=== PATIENT | female | born 1995 | race Caucasian/White ===

== ENCOUNTER 2016-09-17 09:40 | Inpatient (IN) | payer OTHER ==
[2016-09-17 14:38] VITALS: BMI 20.3
--- NOTE | 2016-09-17 15:16 | HP ---
COWS - Scale Resting Pulse: 4= [place] > 121 Sweatin= No chills or Flushing Restless Observation: 3= Extraneous Movement Pupil Size: 2= Moderately Dilated Bone or Joint Aches: 2= Severe Diffuse Aches Runny Nose/ Eye Tearin= Nasal Congestion GI Upset > 30mins: 1= Stomach Cramp Tremor Observation: 1= Tremor [place], Not Seen Yawning Observation: 1= 1-2x During Session Anxiety or Irritability: 1=Feels Anxious/Irritable Goose Flesh Skin: 0=Smooth Skin COWS Score: 16 CIWA Score - CIWA Score Nausea/Vomitin-No Nausea/No Vomiting Muscle Tremors: 3 Anxiety: 5 Agitation: 4-Moderately Restless Paroxysmal Sweats: 1-Minimal Palms Moist Orientation: 0-Oriented Tacttile Disturbances: 2-Mild Itch/Numbness/Burn Auditory Disturbances: 0-None Visual Disturbances: 0-None Headache: 0-None Present CIWA-Ar Total Score: 15 Admission ROS S - HPI Chief Complaint: DETOX TX FOR HEROIN AND XANAX DEPENDENCE. Allergies/Adverse Reactions: Allergies Allergy/AdvReac Type Severity Reaction Status Date / Time No Known Allergies Allergy Verified 09/17/16 14:40 History of Present Illness: 20 Y/O FEMALE WITH A HX OF HEROIN,COCAINE AND XANAX DEPENDENCE SEEKING DETOX TX. Exam Limitations: No Limitations - Ebola screening Have you traveled outside of the country in the last 21 days: No Have you had contact with anyone from an Ebola affected area: No Have you been sick,other than usual withdrawal symptoms: No Do you have a fever: No - Review of Systems Constitutional: Chills, Loss of Appetite, Night Sweats, Changes in sleep, Unintentional Wgt. Loss EENT: reports: Blurred Vision, Tearing, Nose Congestion, Dental Problems Respiratory: reports: No Symptoms reported Cardiac: reports: Lightheadedness GI: reports: Constipated, Diarrhea, Nausea, Poor Appetite, Poor Fluid Intake, Vomiting, Abdominal cramping : reports: Burning, Dysuria (DUE TO ACTIVE DRUG USE) Musculoskeletal: reports: Back Pain, Joint Pain, Muscle Pain Integumentary: reports: Bruising (IVD INJ SITES ON BOTH FOREARMS AND BOTH SIDES OF NECK--SITES SLIGHTLY RED. ON CEPHALEXINE 500 MG CAP 4 X DAILY.) Neuro: reports: Headache, Unsteady Gait, Dizziness Endocrine: reports: No Symptoms Reported Hematology: reports: Easy Bruising Psychiatric: reports: Orientated x3, Anxious, Depressed Other Systems: Reviewed and Negative Patient History - Patient Medical History Hx Anemia: No Hx Asthma: No Hx Chronic Obstructive Pulmonary Disease (COPD): No Hx Cardiac Disorders: No Hx Hypertension: No Hx Hypercholesterolemia: No HX Cerebrovascular Accident: No Hx Seizures: No Hx Diabetes: No Hx Gastrointestinal Disorders: No Hx Genitourinary Disorders: No Hx Sexually Transmitted Disorders: No Hx Renal Disease (ESRD): No Hx Thyroid Disease: No Hx Human Immunodeficiency Virus (HIV): No (NEGATIVE HX) Hx Hepatitis C: No Hx Depression: Yes (ON MED-TAKES EFFEXOR) Hx Suicide Attempt: No (DENIES(HX OF ACCIDENTAL OVERDOSE OF HEROIN/FENTANYL). ) Hx Schizophrenia: No - Patient Surgical History Past Surgical History: No Hx Neurologic Surgery: No Hx Cataract Extraction: No Hx Cardiac Surgery: No Hx Lung Surgery: No Hx Breast Surgery: No Hx Breast Biopsy: No Hx Abdominal Surgery: No Hx Appendectomy: No Hx Cholecystectomy: No Hx Genitourinary Surgery: No Hx Section: No Hx Orthopedic Surgery: No Hx Hysterectomy: No Anesthesia Reaction: No - PPD History Previous Implant?: Yes Documented Results: Negative w/o proof Implanted On Prior R Admission?: No PPD to be Administered?: Yes - Reproductive History Patient is a Female of Child Bearing Age (11 -55 yrs old): Yes Last Menstrual Period: 08/28/16 Patient : No - Smoking Cessation Smoking history: Current every day smoker Have you smoked in the past 12 months: Yes Aproximately how many cigarettes per day: 20 Hx Chewing Tobacco Use: No Initiated information on smoking cessation: Yes 'Breaking Loose' booklet given: 09/17/16 - Substance & Tx. History Hx Alcohol Use: Yes (BEER) Hx Substance Use: Yes (HEROIN/XANAX/COCAINE/CRYSTAL METH) Substance Use Type: Alcohol, Cocaine, Heroin Hx Substance Use Treatment: No - Substances Abused Heroin Route: Injection Frequency: Daily Amount used: 10 bags Age of first use: 20 Date of Last Use: 09/16/16 Alprazolam (Xanax) Route: Oral Frequency: 3-6 times per week Amount used: 2mg Age of first use: 19 Date of Last Use: 09/14/16 Cocaine Route: Injection Frequency: Daily Amount used: 8 ball Age of first use: 17 Date of Last Use: 09/16/16 Alcohol Route: Oral Frequency: 3-6 times per week Amount used: 7 beers Age of first use: 17 Date of Last Use: 09/16/16 Crystal Meth Route: Smoking Amount used: 3 bags Age of first use: 20 Date of Last Use: 09/16/16 Family Disease History - Family Disease History Family History: Unable to Obtain (ADOPTED--"DON'T KNOW") Admission Physical Exam [facility] - Vital Signs Vital Signs: Vital Signs - 24 hr 09/17/16 14:36 Temperature 97.0 F L Pulse Rate 124 H Respiratory 20 Rate Blood Pressure 121/84 - Physical General Appearance: Yes: Moderate Distress, Irritable, Anxious HEENTM: Yes: EOMI, Normocephalic, ENID, Pharynx Normal, Other (NOSE RING IN PLACE.) Respiratory: Yes: Chest Non-Tender, Lungs Clear, Normal Breath Sounds, No Respiratory Distress Neck: Yes: Supple, Trachea in good position Breast: Yes: Breast Exam Deferred Cardiology: Yes: Regular Rhythm, S1, S2, Tachycardia Abdominal: Yes: Normal Bowel Sounds, Non Tender, Flat, Soft Genitourinary: Yes: Other (N/C) Musculoskeletal: Yes: full range of Motion, Gait Steady Extremities: Yes: Normal Range of Motion, Non-Tender 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 SOME REDNESS--PT ON CEPHALEXINE TX. WILL CONTINUE ANTIBIOTICS TREATMENT TILL FINISH.) Lymphatic: Yes: Within Normal Limits - Diagnostic (1) Alcohol dependence with uncomplicated withdrawal Current Visit: Yes Status: Acute (2) Opioid dependence with withdrawal Current Visit: Yes Status: Acute (3) Sedative, hypnotic or anxiolytic dependence with withdrawal, uncomplicated Current Visit: Yes Status: Acute (4) Cocaine dependence, uncomplicated Current Visit: Yes Status: Acute (5) Cellulitis Current Visit: Yes Status: Acute Qualifiers: Site of cellulitis of extremity: upper extremity Comment: BOTH FOREARMS DUE TO IVD INJ. SITES (6) Methamphetamine dependence Current Visit: Yes Status: Acute Cleared for Admission [facility] - Detox or Rehab [facility] Level of Care: Medically Managed Detox Regimen/Protocol: Methadone/Valium [facility] Breath Alcohol Content Breath Alcohol Content: 0 Urine Pregancy Test - Result Urine Test Results: Negative- NO Line Present Urine Drug Screen - Results Drug Screen Negative: No Urine Drug Screen Results: MARK-Cocaine, OPI-Opiates, AMP-Amphetamines, MET- Methamphetamine, BZO-Benzodiazepines
[2016-09-17] MEDS ORDERED: diphenhydrAMINE HCL 50 MG CAPSULE PO PRN (15:34)
[2016-09-17] MEDS ORDERED: IBUPROFEN 400 MG TABLET (FP) PO PRN (15:34)
[2016-09-17] MEDS ORDERED: MENTHOL/PHENOL 1 EACH UD MM PRN (15:34)
[2016-09-17] MEDS ORDERED: LOPERAMIDE HCL 2 MG CAPSULE PO PRN (15:34)
[2016-09-17] MEDS ORDERED: ACETAMINOPHEN 325 MG TABLET (FP) PO PRN (15:34)
[2016-09-17] MEDS ORDERED: MAGNESIUM HYDROX 2400MG/30ML ORAL SUSPENSION 30 ML CUP PO PRN (15:34)
[2016-09-17] MEDS ORDERED: P-EPHED 60MG/TRIPROLIDI 2.5MG TABLET PO PRN (15:34)
[2016-09-17] MEDS ORDERED: MAG HYDROX/AL HYDROX/SIMETH 30 ML UNIT-DOSE CUP PO PRN (15:34)
[2016-09-17] MEDS ORDERED: NICOTINE POLACRILEX 4 MG GUM BC PRN (15:34)
[2016-09-17] MEDS ORDERED: guaiFENesin/D-METHORPHAN HB 10 ML UNIT-DOSE CUPS PO PRN (15:34)
[2016-09-17] MEDS ORDERED: MAGNESIUM CITRATE 300 ML BOTTLE PO PRN (15:34)
[2016-09-17] MEDS ORDERED: diazePAM 5 MG TABLET PO PRN ×2 (15:34→16:18)
[2016-09-17] MEDS ORDERED: diazePAM 5 MG TABLET PO ONE (18:00)
[2016-09-17] MEDS ORDERED: METHADONE HCL 10 MG TABLET (FOR DETOX USE ONLY) PO ONE ×2 (18:00→23:00)
[2016-09-17] MEDS: NICOTINE 21 MG/24 HOURS TOPICAL PATCH TD SCH (18:10)
[2016-09-17] MEDS: CEPHALEXIN MONOHYDRATE 500 MG CAPSULE (UD) PO SCH ×2 (18:15→23:01)
[2016-09-17] MEDS ORDERED: THIAMINE HCL 100 MG TABLET (FP) PO SCH (22:00)
[2016-09-17] MEDS: diazePAM 5 MG TABLET PO SCH (22:39)
[2016-09-17 23:13] LABS: URINE APPEARANCE CLEAR; URINE BILIRUBIN NEGATIVE (NEGATIVE); URINE BLOOD NEGATIVE (NEGATIVE); URINE COLOR YELLOW; URINE GLUCOSE (UA) NEGATIVE (NEGATIVE); URINE KETONE 1+ (NEGATIVE); URINE NITRITE NEGATIVE (NEGATIVE); URINE PROTEIN NEGATIVE (NEGATIVE); URINE UROBILINOGEN NEGATIVE E.U./dl (0.2-1.0)
[2016-09-17 23:14] LABS: URINE LEUK ESTERASE 1+ (NEGATIVE)
[2016-09-17 23:19] LABS: URINE BACTERIA RARE /hpf (NONE SEEN); URINE MUCUS RARE; URINE RBC <1 /hpf (0-3); URINE WBC 5 /hpf (3-5)
[2016-09-18] MEDS: CEPHALEXIN MONOHYDRATE 500 MG CAPSULE (UD) PO SCH ×2 (07:15→13:52)
[2016-09-18] MEDS: diazePAM 5 MG TABLET PO SCH (07:15)
--- NOTE | 2016-09-18 09:36 | PN ---
[facility]HS COWS - Scale Resting Pulse: 0= [place] 80 or Below Sweatin= Chills/Flushing Restless Observation: 1= Difficult to Sit Still Pupil Size: 1= Pupils >than Normal Bone or Joint Aches: 2= Severe Diffuse Aches Runny Nose/ Eye Tearin= Nasal Congestion GI Upset > 30mins: 1= Stomach Cramp Tremor Observation of Outstretched Hands: 1= Tremor [place], Not Seen Yawning Observation: 0= None Anxiety or Irritability: 2=Irritable/Anxious Goose Flesh Skin: 0=Smooth Skin COWS Score: 10 BHS Progress Note (SOAP) Subjective: interrupted sleep, sweats, anxiety ,left wrist pain Objective: 09/18/16 09:31 Vital Signs Temperature 97.3 F L 09/18/16 06:00 Pulse Rate 68 09/18/16 06:00 Respiratory Rate 16 09/18/16 06:00 Blood Pressure 115/59 09/18/16 06:00 O2 Sat by Pulse Oximetry (%) Laboratory Tests 09/17/16 22:08 Urine Color Yellow Urine Appearance Clear Urine pH 6.0 Urine Protein Negative Urine Glucose (UA) Negative Urine Ketones 1+ H Urine Blood Negative Urine Nitrite Negative Urine Bilirubin Negative Urine Urobilinogen Negative Ur Leukocyte Esterase 1+ H Urine RBC <1 Urine WBC 5 Ur Epithelial Cells Many Urine Bacteria Rare Urine Mucus Rare 09/18/16 09:48 pt aox3 , anxious rt hand cellulitis improving , left wrist excoriated Assessment: 09/18/16 09:31 withdrawal sx's cellulitis improving 09/18/16 09:50 Plan: cont. detox increase fluids cont . keflex bacitracin oint bid
[2016-09-18] MEDS ORDERED: VENLAFAXINE HCL PO SCH (10:00)
[2016-09-18] MEDS ORDERED: METHADONE HCL 10 MG TABLET (FOR DETOX USE ONLY) PO ONE (10:00)
[2016-09-18] MEDS ORDERED: VENLAFAXINE HCL 100 MG TABLET PO SCH (10:00)
[2016-09-18] MEDS ORDERED: BACITRACIN 0.9 GM PACKET TP SCH (10:00)
[2016-09-18] MEDS ORDERED: PRENATAL VITAMINS W/ FOLIC ACID TABLET (FP) PO SCH (10:00)
[2016-09-18 10:14] LABS: MCH 30.5 pg (25.7-33.7); MEAN CELL VOLUME 87.2 fl (80-96); MEAN PLT VOLUME 8.4 fl (7.5-11.1); PLATELET COUNT 204 K/MM3 (134-434); RDW 13.4 % (11.6-15.6); WHITE BLOOD COUNT 6.7 K/mm3 (4.0-10.0)
--- NOTE | 2016-09-18 10:20 | CONSULT ---
[facility] Psychiatric Consult - Data Date of interview: 09/18/16 Admission source: [facility] Identifying data: This is 20 years old female with psychiatric hospitalization history intoxicated with: Alcohol, Cocaine, Opioids, Xanax Substance Abuse History: - Smoking Cessation. Smoking history: Current every day smoker. Have you smoked in the past 12 months: Yes. Aproximately how many cigarettes per day: 20. Hx Chewing Tobacco Use: No. Initiated information on smoking cessation: Yes. 'Breaking Loose' booklet given: 09/17/16. - Substance & Tx. History. Hx Alcohol Use: Yes (BEER). Hx Substance Use: Yes (HEROIN/XANAX /COCAINE/CRYSTAL METH). Substance Use Type: Alcohol, Cocaine, Heroin. Hx Substance Use Treatment: No. - Substances Abused. Heroin. Route: Injection. Frequency: Daily. Amount used: 10 bags. Age of first use: 20. Date of Last Use: 09/16/16. Alprazolam (Xanax). Route: Oral. Frequency: 3- 6 times per week. Amount used: 2mg. Age of first use: 19. Date of Last Use: 09/14/16. Cocaine. Route: Injection. Frequency: Daily. Amount used: 8 ball. Age of first use: 17. Date of Last Use: 09/16/16. Alcohol. Route: Oral. Frequency: 3-6 times per week. Amount used: 7 beers. Age of first use: 17. Date of Last Use: 09/16/16. Crystal Meth. Route: Smoking. Amount used : 3 bags. Age of first use: 20. Date of Last Use: 09/16/16 Medical History: Cellulitis history Psychiatric History: Patient reports unclear psychiatric admission on 3 years ago at [facility] for safety, reports taking prior to admission: Effexor 175mg poqd. Seroquel 50mg po qhs. Vistaril 25mg po prn q4 for anxiety Physical/Sexual Abuse/Trauma History: Denies Additional Comment: Effexor 175mg poqd. Seroquel 50mg po qhs. Vistaril 25mg po prn q4 for anxiety Mental Status Exam - Mental Status Exam Alert and Oriented to: Person Cognitive Function: Fair Patient Appearance: Unkempt Mood: Anxious Affect: Mood Congruent Patient Behavior: Cooperative Speech Pattern: Appropriate Voice Loudness: Mildly Soft/Quiet Thought Process: Goal Oriented Thought Disorder: Being Controlled Hallucinations: Denies Suicidal Ideation: Denies Homicidal Ideation: Denies Insight/Judgement: Fair Sleep: Difficulty falling asleep Appetite: Fair Muscle strength/Tone: Mild Hypotonicity Gait/Station: Shuffling Additional Comments: Effexor 175mg poqd. Seroquel 50mg po qhs. Vistaril 25mg po prn q4 for anxiety Psychiatric Findings - Problem List ([place] 1, 2,3) (1) Alcohol dependence with uncomplicated withdrawal Current Visit: Yes Status: Acute (2) Cocaine dependence, uncomplicated Current Visit: Yes Status: Acute (3) Methamphetamine dependence Current Visit: Yes Status: Acute (4) Opioid dependence with withdrawal Current Visit: Yes Status: Acute (5) Sedative, hypnotic or anxiolytic dependence with withdrawal, uncomplicated Current Visit: Yes Status: Acute (6) Drug-induced mood disorder Current Visit: Yes Status: Acute - Initial Treatment Plan Initial Treatment Plan: Effexor 175mg poqd. Seroquel 50mg po qhs. Vistaril 25mg po prn q4 for anxiety
[2016-09-18] MEDS: NICOTINE 21 MG/24 HOURS TOPICAL PATCH TD SCH (10:31)
[2016-09-18 10:39] LABS: ALBUMIN 3.7 g/dl (3.4-5.0); ALK PHOS 85 U/L (45-117); ANION GAP 9 (8-16); BILIRUBIN,TOTAL 0.8 mg/dL (0.2-1.0); CALCIUM 9.1 mg/dL (8.5-10.1); CO2 29 mmol/L (21-32); COCKROFT - GAULT 105.2895; CREATININE 0.8 mg/dL (0.55-1.02); GLUCOSE,RANDOM 126 mg/dL (74-106); SGOT/AST 57 U/L (15-37); SGPT/ALT 35 U/L (12-78)
--- NOTE | 2016-09-18 11:59 | EKG ---
Test Reason : Blood Pressure : / mmHG Vent. Rate : 067 BPM Atrial Rate : 067 BPM P-R Int : 118 ms QRS Dur : 082 ms QT Int : 402 ms P-R-T Axes : 011 079 074 degrees QTc Int : 424 ms NORMAL SINUS RHYTHM WITH SINUS ARRHYTHMIA NORMAL ECG NO PREVIOUS ECGS AVAILABLE Confirmed by VIVIANA HAGAN, CARMELLA ([id number]) on 09/18/2016 11:58:59 AM Referred By: Confirmed By:CARMELLA MICHELLE MD
[2016-09-18 13:38] VITALS: BP 111/59; PULSE 118; TEMP 97.5
[2016-09-18] MEDS ORDERED: QUEtiapine FUMARATE 50 MG TABLET PO SCH (22:00)
[2016-09-19] MEDS ORDERED: METHADONE HCL 5 MG TABLET (FOR DETOX USE ONLY) PO ONE (10:00)
[2016-09-19] MEDS ORDERED: diazePAM 5 MG TABLET PO SCH (10:00)
[2016-09-20] MEDS ORDERED: METHADONE HCL 5 MG TABLET (FOR DETOX USE ONLY) PO ONE (10:00)
[2016-09-21] MEDS ORDERED: METHADONE HCL 10 MG TABLET (FOR DETOX USE ONLY) PO ONE (10:00)
[2016-09-21] MEDS ORDERED: diazePAM 5 MG TABLET PO SCH (10:00)
[2016-09-22] MEDS ORDERED: METHADONE HCL 5 MG TABLET (FOR DETOX USE ONLY) PO ONE (06:00)
== END 2016-09-18 14:22 | disposition left against medical advice (07) | DRG 770 ==
LOC: YASAS 09:40 → Y6N 17:02
PROVIDERS: ADMIT Internal Medicine Addiction Medicine; ATTEND Internal Medicine Addiction Medicine
PROC: HZ2ZZZZ Detoxification Services for Substance Abuse Treatment (ICD-10-PCS; principal; 2016-09-17)
DX: F11.23 Opioid dependence with withdrawal (principal); F13.230 Sedative, hypnotic or anxiolytic dependence with withdrawal, uncomplicated; F10.230 Alcohol dependence with withdrawal, uncomplicated; F15.20 Other stimulant dependence, uncomplicated; F14.20 Cocaine dependence, uncomplicated; F17.210 Nicotine dependence, cigarettes, uncomplicated; F19.24 Other psychoactive substance dependence with psychoactive substance-induced mood disorder; R00.0 Tachycardia, unspecified; L03.114 Cellulitis of left upper limb; L03.113 Cellulitis of right upper limb
CPT/HCPCS: 36415; 80053; 81003; 81015; 85027; 86593; 93005; 93010

== ENCOUNTER 2020-02-03 17:49 | Inpatient (IN) | payer OTHER ==
--- OUTSIDE RECORDS SUMMARY | 2020-02-03 17:53 | XMS ---
:1995 [facility] Providers Name Role Phone MD ITZEL Unavailable Unavailable ANTONIO Unavailable Unavailable Re-disclosure Warning The records that you are about to access may contain information from federally- assisted alcohol or drug abuse programs. If such information is present, then the following federally mandated warning applies: This information has been disclosed to you from records protected by federal confidentiality rules (42 CFR part 2). The federal rules prohibit you from making any further disclosure of this information unless further disclosure is expressly permitted by the written consent of the person to whom it pertains or as otherwise permitted by 42 CFR part 2. A general authorization for the release of medical or other information is NOT sufficient for this purpose. The Federal rules restrict any use of the information to criminally investigate or prosecute any alcohol or drug abuse patient.The records that you are about to access may contain highly sensitive health information, the redisclosure of which is protected by Article 27-F of the [place] State Public Health law. If you continue you may haveaccess to information: Regarding HIV / AIDS; Provided by facilities licensed or operated by the [facility] Office of Mental Health; or Provided by the [facility] Office for People With Developmental Disabilities. If such information is present, then the following [facility] mandated warning applies: This information has been disclosed to you from confidential records which are protected by state law. State law prohibits you from making any further disclosure of this information without the specific written consent of the person to whom it pertains, or as otherwise permitted by law. Any unauthorized further disclosure in violation of state law may result in a fine or senior living sentence or both. A general authorization for the release of medical or other information is NOT sufficient authorization for further disclosure. Encounters Encounter Providers Location Date Indications Data Source(s ) Outpatient Attender: TOÑA GATITO 02/04/2019 Patrice marzena CLAYCARLOSdmitter: 03:11:00 PM [facility] EDT - 02/04/2019 10:45:00 AM EDT Patient discharged. Outpatient Attender: TOÑA GATITO 10/26/2018 01:58:00 PM [facility]: [facility] EDT - 10/26/2018 [facility] 04:10:00 PM EDT Patient discharged. Insurance Providers Payer name Policy type Policy ID Covered Covered democrat's Policy P mike / Coverage democrat ID relationship to Mariano Inf ormation type mariano MVP MEDICAID [id number] SP [id number] HMO SELF PAY 00 Self 00 MEDICAID OP [id number] Self [id number] [facility] MVP [id number] Self [id number] [employer] [place] SELF PAY 00 Self 00 MEDICAID OP [id number] Self [id number] O MVP/HHP O [id number] 01 [id number] MVP/HHP O [id number] 01 [id number] 900 MEDICAID [id number] PT [id number] [facility] [id number] PT [id number] [facility] [id number] PT [id number] [facility] Results ID Date Data Source [id number] 01/06/2020 08:29:00 PM EDT [facility] Name Value Range Interpretation Description Data Sup porting Code Source(s) Document(s ) [place] [facility] coronavirus 2 RNA This lab was ordered by Alexandro mccray/Shayan and reported by [facility]. Procedure
[2020-02-03 19:46] VITALS: BMI 19.5
--- NOTE | 2020-02-03 20:06 | BHS.RME ---
2019 N Coronavirus Screen - COVID-19 Screening Questions Dx of COVID-19 or had a positive test in the last 4 weeks?: No Contact with known/suspected COVID patient in last 14 days?: No Any of these symptoms or contact with someone who has?: Body Aches, Headache, Nausea or vomiting (All are withdrawal symptoms) Traveled domestically/internationally in the last 14 days?: No Screen score: 3 Screen result: Positive Substance Use & Tx History - Substance Use History Heroin Substance amount: 10 Bags Frequency of use: Daily Substance route: Injection (ex: intravenous or skin popping) Date of Last Use: 02/03/20 - Last Treatment Date of last treatment: 09/17/2016-09/18/2016- [facility] Treatment type: Substance Use Disorder (TOÑO) Where was last treatment: Detox Physical/Psych/Mental Status - Behavior General Behavior: Increased activity (restlessness, agitation) Eye Contact: Normal - Cooperativeness Cooperativeness: Cooperative - Thinking Thought Processes: Logical Thought content: Future oriented - Physical Health Problems Is patient presently having any pain?: Yes (body aches) Does patient presently have any injuries (include location): No Does patient currently have a fever: No Is patient : No COWS - Scale Resting Pulse: 1= [place] 81-100 Sweatin=Flushed/Facial Moisture Restless Observation: 0= Sits Still Pupil Size: 0= Normal to Room Light Bone or Joint Aches: 2= Severe Diffuse Aches Runny Nose/ Eye Tearin= Runny Nose/Eyes GI Upset > 30mins: 3= Vomiting/Diarrhea (vomiting x 1, no diarrhea) Tremor Observation: 1= Tremor [place], Not Seen Yawning Observation: 0= None Anxiety or Irritability: 4=Extreme Anxiety Goose Flesh Skin: 0=Smooth Skin COWS Score: 15 Treatment Recommendation - Level of Care Level of Care: Opioid Treatment Program (OTP) (Heroin detoxification)
--- OUTSIDE RECORDS SUMMARY | 2020-02-03 21:29 | XMS ---
:1995 [facility] Providers Name Role Phone [...] is protected by Article 27-F of the [place] State Public Health law. If you continue you may haveaccess to information: Regarding HIV / AIDS; Provided by facilities licensed or operated by the [facility] Office of Mental Health; or Provided by the [facility] Office for People With Developmental Disabilities. If such information is present, then the following [facility] mandated warning applies: This information has [...] law may result in a fine or shelter sentence or both. A general authorization for the release of medical or other information is NOT sufficient authorization for further disclosure. Encounters Encounter Providers Location Date Indications Data Source(s ) Outpatient Attender: TOÑA GATITO 02/04/2019 Patrice marzena CLAYCARLOSdmitter: 03:11:[address] [facility] EDT - 02/04/2019 10:45:00 AM EDT Patient discharged. Outpatient Attender: TOÑA GATITO 10/26/2018 01:58:00 PM [facility]: [facility] EDT - 10/26/2018 [facility] 04:10:00 PM EDT Patient discharged. Insurance Providers Payer name Policy type Policy ID Covered Covered democrat's Policy P mike / Coverage democrat ID relationship to Mariano Inf ormation type mariano MVP MEDICAID [id number] SP [id number] HMO SELF PAY 00 Self 00 MEDICAID OP [id number] Self [id number] [facility] MVP [id number] Self [id number] [employer]AN [place] SELF PAY 00 Self 00 MEDICAID OP [id number] Self [id number] O MVP/HHP O [id number] 01 [id number] MVP/HHP O [id number] 01 [id number] 900 MEDICAID [id number] PT [id number] [facility] [id number] PT [id number] [facility] [id number] PT [id number] [facility] Results ID Date Data Source [id number] 01/06/2020 08:29:00 PM EDT [facility] Name Value Range Interpretation Description Data Sup porting Code Source(s) Document(s ) [place] [facility] coronavirus 2 RNA This lab was ordered by Alexandro mccray/Shayan and reported by [facility]. Procedure
--- NOTE | 2020-02-03 21:47 | HP ---
COWS - Scale Resting Pulse: 1= [place] 81-100 Sweatin=Flushed/Facial Moisture Restless Observation: 0= Sits Still Pupil Size: 0= Normal to Room Light Bone or Joint Aches: 2= Severe Diffuse Aches Runny Nose/ Eye Tearin= Runny Nose/Eyes GI Upset > 30mins: 3= Vomiting/Diarrhea (vomiting x 1, no diarrhea) Tremor Observation: 1= Tremor [place], Not Seen Yawning Observation: 0= None Anxiety or Irritability: 4=Extreme Anxiety Goose Flesh Skin: 0=Smooth Skin COWS Score: 15 CIWA Score - Admission Criteria OASAS Guidelines: Admission for Medically Managed Detox: Requires at least one of the followin. CIWA greater than 12 2. Seizures within the past 24 hours 3. Delirium tremens within the past 24 hours 4. Hallucinations within the past 24 hours 5. Acute intervention needed for co occurring medical disorder 6. Acute intervention needed for co occurring psychiatric disorder 7. Severe withdrawal that cannot be handled at a lower level of care (continued vomiting, continued diarrhea, abnormal vital signs) requiring intravenous medication and/or fluids 8. Admitting History and Physical - Past Medical History ...LMP: 01/20/20 ...: No - Smoking History Smoking history: Current every day smoker Have you smoked in the past 12 months: Yes Aproximately how many cigarettes per day: 20 - Alcohol/Substance Use Hx Alcohol Use: Yes (BEER) Admission ROS [facility] Chief Complaint: Seeking admission to detox from heroin Allergies/Adverse Reactions: Allergies Allergy/AdvReac Type Severity Reaction Status Date / Time No Known Allergies Allergy Verified 09/17/16 14:40 History of Present Illness: 24 years old female with 6 years of heroin dependence is seeking admission to detox. This is her second admission to [facility]. Her last admission was for the period 09/17/2016-09/18/2016 and she had left AMA. She reports that she was in detox at [facility] in 2019. She uses 10 bags Intravenous daily. She denies medical history, reports psych. history of depression, anxiety, ADHD and she denies suicidal ideation at this time. She is unemployed, lives with her dad and denies any pending legal issues. She reports blackouts ( last was last night) and overdose (multiple times, twice this week). Patient reports that she relapsed and is no longer on Suboxone therapy. Exam Limitations: No Limitations - Ebola screening Have you traveled outside of the country in the last 21 days: No Have you had contact with anyone from an Ebola affected area: No Have you been sick,other than usual withdrawal symptoms: No Do you have a fever: No - Review of Systems Constitutional: Chills, Malaise, Night Sweats, Changes in sleep EENT: reports: No Symptoms Reported Respiratory: reports: No Symptoms reported Cardiac: reports: No Symptoms Reported GI: reports: Poor Appetite, Poor Fluid Intake, Vomiting (x 1), Abdominal cramping : reports: No Symptoms Reported Musculoskeletal: reports: Muscle Pain, Other (body aches) Integumentary: reports: Dryness, Flushing Neuro: reports: Headache, Tremors Endocrine: reports: No Symptoms Reported Hematology: reports: No Symptoms Reported Psychiatric: reports: Anxious, Depressed Other Systems: Reviewed and Negative Patient History - Patient Medical History Hx Anemia: No Hx Asthma: No Hx Chronic Obstructive Pulmonary Disease (COPD): No Hx Cancer: No Hx Cardiac Disorders: No Hx Congestive Heart Failure: No Hx Hypertension: No Hx Hypercholesterolemia: No Hx Pacemaker: No HX Cerebrovascular Accident: No Hx Seizures: No Hx Diabetes: No Hx Gastrointestinal Disorders: No Hx Liver Disease: No Hx Genitourinary Disorders: No Hx Sexually Transmitted Disorders: No Hx Renal Disease (ESRD): No Hx Thyroid Disease: No Hx Human Immunodeficiency Virus (HIV): No (NEGATIVE 2020) Hx Hepatitis C: No Hx Depression: Yes (+ Anxiety - Not on medication) Hx Suicide Attempt: No (Denies suicidal ideation at this time) Hx Bipolar Disorder: No Hx Schizophrenia: No - Patient Surgical History Past Surgical History: No Hx Neurologic Surgery: No Hx Cataract Extraction: No Hx Cardiac Surgery: No Hx Lung Surgery: No Hx Breast Surgery: No Hx Breast Biopsy: No Hx Abdominal Surgery: No Hx Appendectomy: No Hx Cholecystectomy: No Hx Genitourinary Surgery: No Hx Section: No Hx Orthopedic Surgery: No Hx Hysterectomy: No Anesthesia Reaction: No - PPD History Previous Implant?: Yes Documented Results: Negative w/o proof Implanted On Prior [facility] Admission?: No Date: 09/19/16 PPD to be Administered?: Yes - Reproductive History Patient is a Female of Child Bearing Age (11 -55 yrs old): Yes Last Menstrual Period: 01/20/20 Patient : No - Smoking Cessation Smoking history: Current every day smoker Have you smoked in the past 12 months: Yes Aproximately how many cigarettes per day: 20 Hx Chewing Tobacco Use: No Initiated information on smoking cessation: Yes 'Breaking Loose' booklet given: 02/03/20 - Substance & Tx. History Hx Alcohol Use: No Hx Substance Use: Yes Substance Use Type: Cocaine, Heroin, Marijuana, Tranquilizers Hx Substance Use Treatment: Yes ([facility] ) - Substances abused Heroin Substance route: Injection Frequency: Daily Amount used: 10 bags Age of first use: 20 Date of last use: 02/03/20 Admission Physical Exam [facility] - Vital Signs Vital Signs: Vital Signs - 24 hr 02/03/20 19:44 Temperature 98.2 F Pulse Rate 99 H Respiratory 19 Rate Blood Pressure 102/62 - Physical General Appearance: Yes: Severe Distress, Irritable, Sweating, Anxious HEENTM: Yes: Within Normal Limits Respiratory: Yes: Lungs Clear, Normal Breath Sounds, No Respiratory Distress Neck: Yes: Within Normal Limits Breast: Yes: Breast Exam Deferred Cardiology: Yes: Tachycardia Abdominal: Yes: Normal Bowel Sounds Genitourinary: Yes: Within Normal Limits Back: Yes: Normal Inspection Musculoskeletal: Yes: Muscle Pain, Other (body aches) Extremities: Yes: Tremors Neurological: Yes: Within Normal Limits Integumentary: Yes: Warm Lymphatic: Yes: Within Normal Limits - Diagnostic (1) Cannabis dependence Current Visit: Yes Status: Chronic (2) Anxiety Current Visit: Yes Status: Chronic (3) Depression Current Visit: Yes Status: Chronic Qualifiers: Depression Type: unspecified Qualified Code(s): F32.9 - Major depressive disorder, single episode, unspecified (4) ADHD (attention deficit hyperactivity disorder) Current Visit: Yes Status: Chronic Qualifiers: Attention deficit-hyperactivity disorder type: unspecified Qualified Code(s): F90.9 - Attention-deficit hyperactivity disorder, unspecified type (5) Cocaine dependence, uncomplicated Current Visit: Yes Status: Chronic (6) Methamphetamine dependence Current Visit: Yes Status: Chronic (7) Opioid dependence with withdrawal Current Visit: Yes Status: Acute Cleared for Admission [facility] - Detox or Rehab [facility] Level of Care: Medically Managed Detox Regimen/Protocol: Methadone Claeared for Rehab Admission: No Breathalyzer - Breathalyzer Breathalyzer: 0 Urine Drug Screen - Test Device Lot number: [id number] Expiration date: 07/27/21 - Control Is test valid?: Yes - Results Drug screen NEGATIVE: No Urine drug screen results: THC-Marijuana, MARK-Cocaine, AMP-Amphetamines, FEN- Fentanyl, MOP-Opiates Inpatient Rehab Admission - Rehab Decision to Admit Inpatient rehab admission?: No
[2020-02-03] MEDS ORDERED: MAG HYDROX/AL HYDROX/SIMETH 30 ML UNIT-DOSE CUP PO PRN (22:10)
[2020-02-03] MEDS ORDERED: MENTHOL/PHENOL 1 EACH UD MM PRN (22:10)
[2020-02-03] MEDS ORDERED: ACETAMINOPHEN 325 MG TABLET (FP) PO PRN ×2 (22:10)
[2020-02-03] MEDS ORDERED: MAGNESIUM HYDROX 2400MG/30ML ORAL SUSPENSION 30 ML CUP PO PRN (22:10)
[2020-02-03] MEDS ORDERED: BISMUTH SUBSALICYLATE 524 MG/30 ML UD PO PRN (22:10)
[2020-02-03] MEDS ORDERED: NICOTINE POLACRILEX 2 MG GUM BUC PRN (22:10)
[2020-02-03] MEDS ORDERED: MAGNESIUM CITRATE 300 ML BOTTLE PO PRN (22:10)
[2020-02-03] MEDS ORDERED: ONDANSETRON *ODT* 4 MG TABLET SL PRN (22:10)
[2020-02-03] MEDS ORDERED: cloNIDine HCL 0.1 MG TABLET PO PRN (22:10)
[2020-02-03] MEDS ORDERED: IBUPROFEN 400 MG TABLET (FP) PO PRN (22:10)
[2020-02-03] MEDS ORDERED: METHADONE HCL 10 MG TABLET (FOR DETOX USE ONLY) PO ONE (22:45)
[2020-02-04] MEDS ORDERED: METHADONE HCL 10 MG TABLET (FOR DETOX USE ONLY) ONE (09:26)
[2020-02-04] MEDS ORDERED: METHADONE HCL 5 MG TABLET (FOR DETOX USE ONLY) ONE (09:26)
[2020-02-04] MEDS ORDERED: METHADONE (DETOX) 20 MG, METHADONE (DETOX) 5 MG PO ONE (10:00)
[2020-02-04 10:05] LABS: HEMATOCRIT 34.7 % (32.4-45.2); HEMOGLOBIN 11.8 GM/dL (10.7-15.3); MCH 30.3 pg (25.7-33.7); MCHC 34.1 g/dl (32.0-36.0); MEAN CELL VOLUME 88.9 fl (80-96); MEAN PLT VOLUME 8.5 fl (7.5-11.1); PLATELET COUNT 215 K/MM3 (134-434); RDW 13.7 % (11.6-15.6)
[2020-02-04 10:07] LABS: ALBUMIN 2.8 g/dl (3.4-5.0); BLOOD UREA NITROGEN 12.2 mg/dL (7-18); CALCIUM 8.2 mg/dL (8.5-10.1); POTASSIUM 3.3 mmol/L (3.5-5.1)
[2020-02-04 10:12] LABS: BILIRUBIN,TOTAL 0.8 mg/dL (0.2-1); CREATININE 0.7 mg/dL (0.55-1.3); TOT PROT 5.5 g/dl (6.4-8.2)
[2020-02-04] MEDS: PRENATAL VITAMINS W/ FOLIC ACID TABLET (FP) PO SCH (10:31)
[2020-02-04] MEDS: NICOTINE 21 MG/24 HOURS TOPICAL PATCH TD SCH (10:33)
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
--- NOTE | 2020-02-04 13:42 | EKG ---
Test Reason : Blood Pressure : / mmHG Vent. Rate : 059 BPM Atrial Rate : 059 BPM P-R Int : 128 ms QRS Dur : 082 ms QT Int : 412 ms P-R-T Axes : 000 070 060 degrees QTc Int : 407 ms SINUS BRADYCARDIA NONSPECIFIC T WAVE ABNORMALITY ABNORMAL ECG Confirmed by CONSUELO FELTON MD ([id number]) on 02/04/2020 1:42:23 PM Referred By: Confirmed By:CONSUELO FELTON MD
--- NOTE | 2020-02-04 13:57 | PN ---
BHS Progress Note (SOAP) Subjective: sweats shakes body aches interrupted sleep agitation Objective: 02/04/20 13:53 Vital Signs Temperature 98.9 F 02/04/20 09:00 Pulse Rate 75 02/04/20 09:00 Respiratory Rate 18 02/04/20 09:00 Blood Pressure 91/40 L 02/04/20 09:00 O2 Sat by Pulse Oximetry (%) 99 02/04/20 05:53 Laboratory Tests 02/04/20 02/04/20 02/04/20 07:50 07:50 07:50 WBC 9.0 RBC 3.90 Hgb 11.8 Hct 34.7 MCV 88.9 MCH 30.3 MCHC 34.1 RDW 13.7 Plt Count 215 MPV 8.5 Sodium 140 Potassium 3.3 L Chloride 104 Carbon Dioxide 31 Anion Gap 5 L BUN 12.2 Creatinine 0.7 Est GFR (CKD-EPI)AfAm 141.54 Est GFR (CKD-EPI)NonAf 122.12 Random Glucose 94 Calcium 8.2 L Total Bilirubin 0.8 AST 11 L ALT 14 Alkaline Phosphatase 72 Total Protein 5.5 L Albumin 2.8 L Syphilis Serology Non-reactive labs noted low potassium 3.3 aaox3 ambulating no acute distress Assessment: 02/04/20 13:54 withdrawals Plan: continue detox increase fluids kdur 20meq x 3 days repeat labs
[2020-02-04] MEDS: POTASSIUM CHLORIDE TABS 20 MEQ TABLET.ER (FP) PO SCH (15:26)
[2020-02-04] MEDS: hydrOXYzine PAMOATE 25 MG CAPSULE (FP) PO PRN (22:31)
[2020-02-04] MEDS: MELATONIN 5 MG TABLETS PO SCH (22:31)
[2020-02-04] MEDS: THIAMINE HCL 100 MG TABLET (FP) PO SCH (22:31)
[2020-02-04] MEDS: METHOCARBAMOL 500 MG TABLET PO PRN (22:31)
[2020-02-05] MEDS ORDERED: METHADONE HCL 10 MG TABLET (FOR DETOX USE ONLY) PO ONE (10:00)
[2020-02-05] MEDS: PRENATAL VITAMINS W/ FOLIC ACID TABLET (FP) PO SCH (10:21)
[2020-02-05] MEDS: POTASSIUM CHLORIDE TABS 20 MEQ TABLET.ER (FP) PO SCH (10:21)
[2020-02-05] MEDS: NICOTINE 21 MG/24 HOURS TOPICAL PATCH TD SCH (10:21)
--- NOTE | 2020-02-05 19:25 | PN ---
BHS COWS - Scale Resting Pulse: 0= [place] 80 or Below Sweatin= Chills/Flushing Restless Observation: 0= Sits Still Pupil Size: 0= Normal to Room Light Bone or Joint Aches: 2= Severe Diffuse Aches Runny Nose/ Eye Tearin= None GI Upset > 30mins: 0= None Tremor Observation of Outstretched Hands: 2= Slight Tremor Visible Yawning Observation: 1= 1-2x During Session Anxiety or Irritability: 2=Irritable/Anxious Goose Flesh Skin: 0=Smooth Skin COWS Score: 8 BHS Progress Note (SOAP) Subjective: Sweating, Tremors, Body Aches, Interrupted Sleep. Objective: Patient A & O X 2 (Uncertain About Current Day/Date). 02/05/20 19:26 Vital Signs Temperature 96.8 F L 02/05/20 16:45 Pulse Rate 72 02/05/20 16:45 Respiratory Rate 18 02/05/20 16:45 Blood Pressure 104/68 02/05/20 16:45 O2 Sat by Pulse Oximetry (%) 100 02/05/20 16:45 Laboratory Tests 02/03/20 02/04/20 02/04/20 22:42 07:50 07:50 WBC 9.0 RBC 3.90 Hgb 11.8 Hct 34.7 MCV 88.9 MCH 30.3 MCHC 34.1 RDW 13.7 Plt Count 215 MPV 8.5 Sodium Potassium Chloride Carbon Dioxide Anion Gap BUN Creatinine Est GFR (CKD-EPI)AfAm Est GFR (CKD-EPI)NonAf Random Glucose Calcium Total Bilirubin AST ALT Alkaline Phosphatase Total Protein Albumin Syphilis Serology Non-reactive COVID-19 (BALAJI) Not detected 02/04/20 07:50 WBC RBC Hgb Hct MCV MCH MCHC RDW Plt Count MPV Sodium 140 Potassium 3.3 L Chloride 104 Carbon Dioxide 31 Anion Gap 5 L BUN 12.2 Creatinine 0.7 Est GFR (CKD-EPI)AfAm 141.54 Est GFR (CKD-EPI)NonAf 122.12 Random Glucose 94 Calcium 8.2 L Total Bilirubin 0.8 AST 11 L ALT 14 Alkaline Phosphatase 72 Total Protein 5.5 L Albumin 2.8 L Syphilis Serology COVID-19 (BALAJI) Lab Results noted. Assessment: 02/05/20 19:27 WITHDRAWAL SYMPTOMS. HYPOKALEMIA. Plan: Continue Detox. Continue K-Dur for treatment of Hypokalemia. Repeat K level tomorrow AM to see if any change from Detox Admission K level.
[2020-02-05] MEDS: THIAMINE HCL 100 MG TABLET (FP) PO SCH (22:20)
[2020-02-05] MEDS: METHOCARBAMOL 500 MG TABLET PO PRN (22:20)
[2020-02-05] MEDS: hydrOXYzine PAMOATE 25 MG CAPSULE (FP) PO PRN (22:20)
[2020-02-05] MEDS: MELATONIN 5 MG TABLETS PO SCH (22:20)
[2020-02-06] MEDS ORDERED: METHADONE HCL 5 MG TABLET (FOR DETOX USE ONLY) ONE (09:18)
[2020-02-06] MEDS ORDERED: METHADONE HCL 10 MG TABLET (FOR DETOX USE ONLY) ONE (09:19)
[2020-02-06] MEDS: NICOTINE 21 MG/24 HOURS TOPICAL PATCH TD SCH (09:58)
[2020-02-06] MEDS: PRENATAL VITAMINS W/ FOLIC ACID TABLET (FP) PO SCH (09:58)
[2020-02-06] MEDS: POTASSIUM CHLORIDE TABS 20 MEQ TABLET.ER (FP) PO SCH (09:58)
[2020-02-06] MEDS ORDERED: METHADONE (DETOX) 10 MG, METHADONE (DETOX) 5 MG PO ONE (10:00)
--- NOTE | 2020-02-06 13:07 | PN ---
BHS COWS - Scale Resting Pulse: 0= [place] 80 or Below Sweatin= Chills/Flushing Restless Observation: 0= Sits Still Pupil Size: 0= Normal to Room Light Bone or Joint Aches: 2= Severe Diffuse Aches Runny Nose/ Eye Tearin= None GI Upset > 30mins: 0= None Tremor Observation of Outstretched Hands: 1= Tremor [place], Not Seen Yawning Observation: 0= None Anxiety or Irritability: 2=Irritable/Anxious Goose Flesh Skin: 0=Smooth Skin COWS Score: 6 BHS Progress Note (SOAP) Subjective: Complaints of chills, anxiety, sweats and tremors. Objective: 02/06/20 13:07 Alert and oriented x3, in no acute respiratory distress. Full ROM, ambulating in unit without any assistance. Skin warm to touch without lesions. Vital Signs 02/06/20 02/06/20 06:31 08:55 Temperature 97.3 F L 97.7 F Pulse Rate 54 L 84 Respiratory 20 16 Rate Blood Pressure 84/41 L 115/64 O2 Sat by Pulse 99 99 Oximetry (%) Laboratory Last Values WBC 9.0 K/mm3 (4.0-10.0) 02/04/20 07:50 RBC 3.90 M/mm3 (3.60-5.2) 02/04/20 07:50 Hgb 11.8 GM/dL (10.7-15.3) 02/04/20 07:50 Hct 34.7 % (32.4-45.2) 02/04/20 07:50 MCV 88.9 fl (80-96) 02/04/20 07:50 MCH 30.3 pg (25.7-33.7) 02/04/20 07:50 MCHC 34.1 g/dl (32.0-36.0) 02/04/20 07:50 RDW 13.7 % (11.6-15.6) 02/04/20 07:50 Plt Count 215 K/MM3 (134-434) 02/04/20 07:50 MPV 8.5 fl (7.5-11.1) 02/04/20 07:50 Sodium 140 mmol/L (136-145) 02/04/20 07:50 Potassium 3.3 mmol/L (3.5-5.1) L 02/04/20 07:50 Chloride 104 mmol/L (98-107) 02/04/20 07:50 Carbon Dioxide 31 mmol/L (21-32) 02/04/20 07:50 Anion Gap 5 MMOL/L (8-16) L 02/04/20 07:50 BUN 12.2 mg/dL (7-18) 02/04/20 07:50 Creatinine 0.7 mg/dL (0.55-1.3) 02/04/20 07:50 Est GFR (CKD-EPI)AfAm 141.54 02/04/20 07:50 Est GFR (CKD-EPI)NonAf 122.12 02/04/20 07:50 Random Glucose 94 mg/dL (74-106) 02/04/20 07:50 Calcium 8.2 mg/dL (8.5-10.1) L 02/04/20 07:50 Total Bilirubin 0.8 mg/dL (0.2-1) 02/04/20 07:50 AST 11 U/L (15-37) L 02/04/20 07:50 ALT 14 U/L (13-61) 02/04/20 07:50 Alkaline Phosphatase 72 U/L (45-117) 02/04/20 07:50 Total Protein 5.5 g/dl (6.4-8.2) L 02/04/20 07:50 Albumin 2.8 g/dl (3.4-5.0) L 02/04/20 07:50 Syphilis Serology Non-reactive (NONREACTIVE) 02/04/20 07:50 COVID-19 (BALAJI) Not detected (Not Detected) 02/03/20 22:42 02/06/20 13:09 Labs noted. Assessment: 02/06/20 13:09 Withdrawal symptoms. Hypokalemia. Plan: Continue detox protocol. Continue potassium replacement regimen..
[2020-02-06] MEDS: THIAMINE HCL 100 MG TABLET (FP) PO SCH (22:28)
[2020-02-06] MEDS: MELATONIN 5 MG TABLETS PO SCH (22:29)
[2020-02-06] MEDS: hydrOXYzine PAMOATE 25 MG CAPSULE (FP) PO PRN (22:29)
[2020-02-06] MEDS: METHOCARBAMOL 500 MG TABLET PO PRN (22:29)
[2020-02-07] MEDS ORDERED: METHADONE HCL 10 MG TABLET (FOR DETOX USE ONLY) PO ONE (10:00)
[2020-02-07] MEDS: PRENATAL VITAMINS W/ FOLIC ACID TABLET (FP) PO SCH (10:52)
[2020-02-07] MEDS: NICOTINE 21 MG/24 HOURS TOPICAL PATCH TD SCH (10:52)
--- NOTE | 2020-02-07 12:24 | PN ---
BHS COWS - Scale Resting Pulse: 1= [place] 81-100 Sweatin= Chills/Flushing Restless Observation: 0= Sits Still Pupil Size: 0= Normal to Room Light Bone or Joint Aches: 1= Mild Discomfort Runny Nose/ Eye Tearin= None GI Upset > 30mins: 0= None Tremor Observation of Outstretched Hands: 0= None Yawning Observation: 0= None Anxiety or Irritability: 0= None Goose Flesh Skin: 0=Smooth Skin COWS Score: 3 BHS Progress Note (SOAP) Subjective: low appetite body aches tired nausea Objective: 02/07/20 12:22 Vital Signs Temperature 98.3 F 02/07/20 08:25 Pulse Rate 98 H 02/07/20 08:25 Respiratory Rate 18 02/07/20 08:25 Blood Pressure 105/64 02/07/20 08:25 O2 Sat by Pulse Oximetry (%) 97 02/07/20 08:25 Laboratory Tests 02/03/20 02/03/20 02/04/20 19:43 22:42 07:50 WBC RBC Hgb Hct MCV MCH MCHC RDW Plt Count MPV Sodium Potassium Chloride Carbon Dioxide Anion Gap BUN Creatinine Est GFR (CKD-EPI)AfAm Est GFR (CKD-EPI)NonAf Random Glucose Calcium Total Bilirubin AST ALT Alkaline Phosphatase Total Protein Albumin POC Urine HCG, Qual Negative Syphilis Serology Non-reactive COVID-19 (BALAJI) Not detected 02/04/20 02/04/20 02/06/20 07:50 07:50 07:00 WBC 9.0 RBC 3.90 Hgb 11.8 Hct 34.7 MCV 88.9 MCH 30.3 MCHC 34.1 RDW 13.7 Plt Count 215 MPV 8.5 Sodium 140 Potassium 3.3 L 4.4 Chloride 104 Carbon Dioxide 31 Anion Gap 5 L BUN 12.2 Creatinine 0.7 Est GFR (CKD-EPI)AfAm 141.54 Est GFR (CKD-EPI)NonAf 122.12 Random Glucose 94 Calcium 8.2 L Total Bilirubin 0.8 AST 11 L ALT 14 Alkaline Phosphatase 72 Total Protein 5.5 L Albumin 2.8 L POC Urine HCG, Qual Syphilis Serology COVID-19 (BALAJI) aaox3 ambulating no acute distress potassium WNL Assessment: 02/07/20 12:23 withdrawals Plan: continue detox ensure plus BID lunch and dinner d/c in am
[2020-02-07] MEDS: THIAMINE HCL 100 MG TABLET (FP) PO SCH (21:40)
[2020-02-07] MEDS: hydrOXYzine PAMOATE 25 MG CAPSULE (FP) PO PRN (21:40)
[2020-02-07] MEDS: MELATONIN 5 MG TABLETS PO SCH (21:40)
[2020-02-08] MEDS ORDERED: METHADONE HCL 5 MG TABLET (FOR DETOX USE ONLY) PO ONE (06:00)
[2020-02-08 09:56] VITALS: BP 95/60; PULSE 100; TEMP 97.3
--- NOTE | 2020-02-08 10:14 | DS ---
[facility] Detox Discharge Summary Admission Date: 02/03/20 Discharge Date: 02/08/20 - History Present History: Alcohol Dependence, Cannabis Dependence, Cocaine Dependence, Opioid Dependence, Sedative Dependence - Physical Exam Results Vital Signs: Vital Signs Temperature 97.3 F L 02/08/20 08:44 Pulse Rate 100 H 02/08/20 08:44 Respiratory Rate 18 02/08/20 08:44 Blood Pressure 95/60 02/08/20 08:44 O2 Sat by Pulse Oximetry (%) 98 02/08/20 08:44 Pertinent Admission Physical Exam Findings: Vital Signs Temperature 97.3 F L 02/08/20 08:44 Pulse Rate 100 H 02/08/20 08:44 Respiratory Rate 18 02/08/20 08:44 Blood Pressure 95/60 02/08/20 08:44 O2 Sat by Pulse Oximetry (%) 98 02/08/20 08:44 Laboratory Tests 02/03/20 02/03/20 02/04/20 19:43 22:42 07:50 WBC RBC Hgb Hct MCV MCH MCHC RDW Plt Count MPV Sodium Potassium Chloride Carbon Dioxide Anion Gap BUN Creatinine Est GFR (CKD-EPI)AfAm Est GFR (CKD-EPI)NonAf Random Glucose Calcium Total Bilirubin AST ALT Alkaline Phosphatase Total Protein Albumin POC Urine HCG, Qual Negative Syphilis Serology Non-reactive COVID-19 (BALAJI) Not detected 02/04/20 02/04/20 02/06/20 07:50 07:50 07:00 WBC 9.0 RBC 3.90 Hgb 11.8 Hct 34.7 MCV 88.9 MCH 30.3 MCHC 34.1 RDW 13.7 Plt Count 215 MPV 8.5 Sodium 140 Potassium 3.3 L 4.4 Chloride 104 Carbon Dioxide 31 Anion Gap 5 L BUN 12.2 Creatinine 0.7 Est GFR (CKD-EPI)AfAm 141.54 Est GFR (CKD-EPI)NonAf 122.12 Random Glucose 94 Calcium 8.2 L Total Bilirubin 0.8 AST 11 L ALT 14 Alkaline Phosphatase 72 Total Protein 5.5 L Albumin 2.8 L POC Urine HCG, Qual Syphilis Serology COVID-19 (BALAJI) aaox3 ambulating no acute distress lungs CTA - Treatment Hospital Course: Detox Protocol Followed, Detoxed Safely, Responded well, Discharged Condition Good, Rehab Referral Accepted - Medication Discharge Medications: Ambulatory Orders Dextroamphetamine/Amphetamine [Adderall 10 mg Tablet] 30 mg PO BID 02/03/20 - Diagnosis (1) Cannabis dependence Current Visit: Yes Status: Chronic (2) Cocaine dependence, uncomplicated Current Visit: Yes Status: Chronic (3) Hypokalemia Current Visit: Yes Status: Resolved (4) Methamphetamine dependence Current Visit: Yes Status: Chronic (5) Opioid dependence with withdrawal Current Visit: Yes Status: Chronic (6) Substance-induced anxiety disorder Current Visit: Yes Status: Acute (7) Substance-induced sleep disorder Current Visit: Yes Status: Acute (8) ADHD (attention deficit hyperactivity disorder) Current Visit: Yes Status: Chronic Qualifiers: Attention deficit-hyperactivity disorder type: unspecified Qualified Code(s): F90.9 - Attention-deficit hyperactivity disorder, unspecified type (9) Anxiety disorder Current Visit: Yes Status: Chronic Qualifiers: Anxiety disorder type: unspecified anxiety disorder Qualified Code(s): F41.9 - Anxiety disorder, unspecified (10) Depression Current Visit: Yes Status: Chronic Qualifiers: Depression Type: unspecified Qualified Code(s): F32.9 - Major depressive disorder, single episode, unspecified (11) Nicotine dependence Current Visit: Yes Status: Chronic Qualifiers: Nicotine product type: cigarettes Substance use status: uncomplicated [place] lified Code(s): F17.210 - Nicotine dependence, cigarettes, uncomplicated (12) Drug-induced mood disorder Current Visit: No Status: Acute - AMA Did Patient Leave Against Medical Advice: No
[2020-02-08] MEDS: NICOTINE 21 MG/24 HOURS TOPICAL PATCH TD SCH (10:17)
[2020-02-08] MEDS: PRENATAL VITAMINS W/ FOLIC ACID TABLET (FP) PO SCH (10:17)
== END 2020-02-08 10:35 | disposition home or self-care (01) | DRG 773 ==
LOC: YASAS 17:49 → Y6N 21:25
PROVIDERS: ADMIT Allergy & Immunology; ATTEND Allergy & Immunology
PROC: HZ2ZZZZ Detoxification Services for Substance Abuse Treatment (ICD-10-PCS; principal; 2020-02-03)
DX: F11.23 Opioid dependence with withdrawal (principal); F14.20 Cocaine dependence, uncomplicated; F15.20 Other stimulant dependence, uncomplicated; F12.20 Cannabis dependence, uncomplicated; F17.210 Nicotine dependence, cigarettes, uncomplicated; F19.282 Other psychoactive substance dependence with psychoactive substance-induced sleep disorder; F19.280 Other psychoactive substance dependence with psychoactive substance-induced anxiety disorder; F19.24 Other psychoactive substance dependence with psychoactive substance-induced mood disorder; F32.9 Major depressive disorder, single episode, unspecified; F41.9 Anxiety disorder, unspecified; F90.9 Attention-deficit hyperactivity disorder, unspecified type; E87.6 Hypokalemia
CPT/HCPCS: 36415; 80053; 81025; 84132; 85027; 86780; 93005; 93010; C9803; U0003